=== PATIENT | female | born 1930 | race Caucasian/White ===

== ENCOUNTER 2018-09-29 10:50 | Inpatient (IN) | payer MEDICARE, BC, OTHER ==
[~2018-09-29] VITALS: Ht 152.4 cm; Wt 60.3 kg
[~2018-09-29 10:50] MED LIST: BENADRYL25 MG PO; CAPECITABINE; CIPRODEX OTIC7.5 ML OPHTHALMIC; CIPROFLOXACIN500 M1 PO; COLACE100 MG PO; COMPAZINE10 MG PO; DIPHENOXYLATE/A1 TA1 PO; FLAGYL500 MG PO; IBUPROFEN 800800 M1 PO; IMODIUM MULTI-1 EACH PO; KLOR-CON 10 ER10 MEQ PO; METAMUCIL WAFER1 PKT PO; MOM PO; NOHOMEMEDICATIONS; NORCO 5-325 TA1 EACH PO; NORVASC 5 MG TAB5 MG PO; NORVASC10 MG PO; OPIUM TINC10 MG/1 ML PO; POTASSIUM CHLORIDE; POTASSIUM20 PO; Potassium PO; ROXICODONE5 MG PO; STOOL SOFTENER50 MG PO; TRINATE TABLET1 TAB PO; TUMS PO; ULTRAM 50MG TAB50 MG PO; VITAMIN B-6100 MG PO; VITAMIN B-650 M1 PO; VITAMIN D31000 UNI2 PO; XELODA PO; ZOFRAN4 MG PO; [UNRECOGNIZED DRUG - OTHER]
[2018-09-29 11:03] VITALS: BP 172/67
--- NOTE | 2018-09-29 12:05 | NUR ---
C/O NO RELIEF FROM PAIN MEDS. WANTS MORE PAIN MED PRIOR TO CT SCAN. NOTIFIED DR. JOHNSON. SEE ORDER.
--- NOTE | 2018-09-29 12:31 | NUR ---
CT HEAD COMPLEATED PATIENT RETURNED TO ED
[2018-09-29 13:49] LABS: HEMATOCRIT 35.4 % (37.0-47.0); HEMOGLOBIN 11.6 gm/dL (12.0-15.0); MCH 29.6 pg (26.0-34.0); MCHC 32.6 g/dL (28.0-37.0); MCV 90.8 fL (80.0-100.0); MPV 9.6 fl. (7.2-11.1); NUCLEATED RBCS 0 /100WBC; PLATELET COUNT* 218 thou/uL (150-400); RDW-CV 13.6 % (10.5-14.5); WBC 10.1 thou/uL (4.0-11.0)
[2018-09-29 13:57] LABS: CALCIUM 9.3 mg/dL (8.5-10.1); POTASSIUM 4.8 mmol/L (3.5-5.1); TOTAL BILIRUBIN 0.3 mg/dL (<0.1-1.0); TOTAL PROTEIN 6.9 g/dL (6.4-8.2)
[2018-09-29 14:07] LABS: APTT 26.6 Seconds (25.0-31.3); PROTIME 10.1 Seconds (9.20-11.50)
[2018-09-29 14:20] LABS: ABSOLUTE EOSINOPHILS 0.1 thou/uL (0.0-0.7); ABSOLUTE LYMPHOCYTES 0.6 thou/uL (0.8-5.3); ABSOLUTE MONOCYTES 0.5 thou/uL (0.0-1.2); ABSOLUTE NEUTROPHILS 8.9 thou/uL (1.6-8.1); PLATELET ESTIMATE ADEQUATE
[2018-09-29 15:42] VITALS: BP 179/69
[2018-09-29 16:00] VITALS: BP 176/74
--- NOTE | 2018-09-29 17:14 | NUR ---
PATIENT ADMITTED TO ROOM 107 VIA CART FROM ER. PATIENT A/O X 4. ADMISSION PROCESS COMPLETED. BP ELEVATED, PATIENT ON 1L/NC, O2 SAT 97%. NEUROCHECKS WNL TO LEFT HAND. PATIENT NOTED TO HAVE BRUISE TO LEFT EYE, LEFT KNEE, AND BACK OF LEFT SHOULDER. SALINE LOCK PATENT. PATIENT'S DAUGHTER AT BEDSIDE. CALL PLACED TO PATIENT'S PHYSICIAN TO OBTAIN PATIENT'S HOME MED LIST. PATIENT UP SBA TO BSC. FALL PRECAUTIONS IN PLACE. HOURLY ROUNDING COMPLETED. CALL LIGHT WITHIN REACH. WILL CONTINUE WITH PLAN OF CARE.
--- NOTE | 2018-09-29 17:25 | NUR ---
SPOKE WITH [facility]THO RESIDENT, STATES WILL SEE PATIENT IN THE AM. FAMILY AND PATIENT INFORMED.
[2018-09-29] MEDS ORDERED: TOPROL XL25 MG PO (17:43)
[2018-09-29] MEDS ORDERED: COLACE100 MG PO (17:43)
[2018-09-29] MEDS ORDERED: CYMBALTA30 MG PO (17:43)
[2018-09-29 20:00] VITALS: BP 155/59
[2018-09-30 04:45] LABS: ABSOLUTE EOSINOPHILS 0.1 thou/uL (0.0-0.7); ABSOLUTE LYMPHOCYTES 1.5 thou/uL (0.8-5.3); ABSOLUTE MONOCYTES 0.8 thou/uL (0.0-1.2); ABSOLUTE NEUTROPHILS 5.1 thou/uL (1.6-8.1); BASOPHILS 0.3 %; HEMATOCRIT 30.9 % (37.0-47.0); HEMOGLOBIN 10.2 gm/dL (12.0-15.0); LYMPHOCYTES 19.4 %; MCH 29.5 pg (26.0-34.0); MCV 89.5 fL (80.0-100.0); MPV 8.9 fl. (7.2-11.1); NUCLEATED RBCS 0 /100WBC; PLATELET COUNT* 208 thou/uL (150-400); POLYS 68.3 %; RBC 3.46 mil/uL (4.20-5.00); RDW-CV 13.6 % (10.5-14.5); WBC 7.5 thou/uL (4.0-11.0)
[2018-09-30 05:00] LABS: CALCIUM 8.8 mg/dL (8.5-10.1); POTASSIUM 4.4 mmol/L (3.5-5.1)
--- NOTE | 2018-09-30 05:41 | NUR ---
ASSESSMENT: PT REMAIN ALERT AND ORIENT TIMES FOUR. LEFT UPPER EXTREMITY IN SLING, NWB NOTED. REFUSED PAIN MEDICATION, STATING THAT HER ARM ONLY HURTS WITH MOVEMENT AND THAT SHE WOULD NOTIFY THIS RN IF PAIN MEDS WERE NEEDED. BRUISES NOTE ON LEFT SIDE OF EYE AND LEFT FORE HEAD. SLOW PROGRESS TOWARDS DC GOALS. WILL CONTINUE TO MONITOR.
[2018-09-30 08:00] VITALS: BP 138/64
--- NOTE | 2018-09-30 14:42 | NUR ---
INITIAL ASSESSMENT: Pt evaluated for d/c planning needs. Reviewed chart and spoke with nurse, PT, pt, daughter and grandson. Pt is alert and oriented. Pt lives alone in house and was independent with ADL's prior to admission. Pt is still driving short distances. Pt was visiting someone in the [facility], tripped and fell. Pt has walker and cane at home, and has had [facility] in the past. Pt, dtr and grandson discussed SNF facilities. Pt said she would prefer going to [facility]. Called residential program coordinator and faxed referral. Awaiting PT and OT input. Will remain available to assist as needed.
[2018-09-30 16:02] VITALS: BP 130/51
--- NOTE | 2018-09-30 18:35 | NUR ---
PT IS ALERT AND ORIENTED X 4. RECEIVED IV PAIN MEDICATION DURING DAY. DENIES NAUSEA. FELT VERY SLEEPY DURING DAY. UP TO BR WITH CANE AND SBA WITH GAIT BELT. TETLIN USES HEARING AIDES. IV PATENT. IMMOBILIZER PLACED ON LEFT SHOULDER. BED ALARM IN USE. PARTICIPATED WITH THERAPY DURING DAY. HOURLY ROUNDS MAINTAINED. CALL LIGHT WITHIN REACH.
[2018-09-30 21:00] VITALS: BP 131/58
--- NOTE | 2018-10-01 06:12 | NUR ---
PT PROGRESSING TOWARD GOALS. PT RECIEVING PRN ULTRAM FOR PAIN WITH GOOD RESULTS. PT GETTING UP TO BEDSIDE COMMODE WITH MINIMAL ASSIST. VITALS SIGNS WITHIN NORMAL LIMITS. NO ACUTE CHANGES DURING SHIFT. WILL CONTINUE PLAN OF CARE.
[2018-10-01 08:00] VITALS: BP 148/60
[2018-10-01 09:14] VITALS: BP 148/60
[2018-10-01 09:22] VITALS: BP 148/60
[2018-10-01 16:10] VITALS: BP 135/55
--- NOTE | 2018-10-01 18:56 | NUR ---
PT ALERT AND ORIENTED X 4. RECEIVED TRAMADOL X 2 FOR SHOULDER PAIN. IV PATENT. IMMOBILIZER IN PLACE. PATIENT PARTICIPATED WITH THERAPIES DURING DAY. AMBULATED TO BR WITH CANE, GAIT BELT, AND SBA X 1. HOURLY ROUNDS MAINTAINED. CALL LIGHT WITHIN REACH.
[2018-10-01 20:00] VITALS: BP 149/56
--- NOTE | 2018-10-01 22:52 | NUR ---
INITAL ASSESMENT COMPLETED AT 1999. PT RESTING IN BED AT THAT TIME. PT ASSISTED TO BEDSIDE COMMODE WITH CANE AND GAIT BELT. PT GIVEN PRN TRAMADOL WITH HS MEDS FOR PAIN IN AFETED SHOULDER. PT'S VITAL SIGNS WITHIN NORMAL LIMITS. CALL LIGHT IN REACH. PT USING APPROPRIATELY FOR ASSISTANCE.
--- NOTE | 2018-10-02 09:17 | NUR ---
Following for d/c planning needs. Reviewed chart and spoke with nurse. Spoke at length with pt. Pt adamantly refuses SNF on d/c from hospital. She said she plans on returning home. Pt is unclear if someone is available to stay with her. Pt has daughter in area, but pt said daughter cannot stay with her. Pt lives with her son, but son works during the day. Called pt's dtr. Dtr said she will call pt and try to talk her into going to SNF. Dtr also said she would call pt's son Eamon, and then call CRYPTOLOGIC SUPPORT SPECIALIST back re: d/c.
[2018-10-02 12:20] VITALS: BP 150/61
--- NOTE | 2018-10-02 12:26 | NUR ---
Received telephone call from product marketing coordinator at [facility]. She said that is primary and they are not in network. UR nurse called product marketing coordinator at facility and explained that Medicare is primary and is secondary. Spoke with pt and pt said she has been to facility in the past, and it is her first choice. Pt said her Medicare is primary and is secondary. Called product marketing coordinator at facility, and she said their corporate business office ran benefits and forbids her to admit pt. Spoke with pt and she is agreeable with referral being sent to [facility]. Called admissions at [facility] and faxed referral. Will await return call re: bed availability and acceptance.
--- NOTE | 2018-10-02 17:14 | NUR ---
DCD TO [facility] GAVE REPORT TO RN PT LEFT LATE TRANSPORT WAS LATE. PT IN [facility],
== END 2018-10-02 17:00 | DRG 543 ==
LOC: M.ERS 10:50 → M.ORTHSURG 14:01 → M.TBA-ER 14:01 → M.ORTHSURG 16:04
PROVIDERS: Personal Emergency Response Attendant; ADMIT Internal Medicine
DX: M80.012A Age-related osteoporosis with current pathological fracture, left shoulder, initial encounter for fracture (principal); E44.1 Mild protein-calorie malnutrition; W01.0XXA Fall on same level from slipping, tripping and stumbling without subsequent striking against object, initial encounter; I10 Essential (primary) hypertension; Y93.89 Activity, other specified; Y99.8 Other external cause status; Z88.5 Allergy status to narcotic agent; Z88.6 Allergy status to analgesic agent; Y92.128 Other place in nursing home as the place of occurrence of the external cause; Z68.26 Body mass index [BMI] 26.0-26.9, adult

== ENCOUNTER → 2018-10-20 | Outpatient (CLI) | payer MEDICARE, BC, OTHER ==
[~2018-10-20] MED LIST changes: +CYMBALTA30 MG PO; +TOPROL XL25 MG PO
== END ==
LOC: M.CT 11:00
DX: S42.292D Other displaced fracture of upper end of left humerus, subsequent encounter for fracture with routine healing (principal); S42.212D Unspecified displaced fracture of surgical neck of left humerus, subsequent encounter for fracture with routine healing; M19.012 Primary osteoarthritis, left shoulder; M85.812 Other specified disorders of bone density and structure, left shoulder; X58.XXXD Exposure to other specified factors, subsequent encounter